=== PATIENT | male | born 1990 | race Caucasian/White ===

== ENCOUNTER 2017-04-02 11:07 | Emergency (ER) | payer BC ==
[~2017-04-02] VITALS: Ht 185.4 cm; Wt 85.0 kg
[2017-04-02 11:11] VITALS: BP 111/62; PULSE 78; RESP 16; TEMP 97.8; O2SAT 98
[2017-04-02] MEDS ORDERED: SERT-129 PO (11:28)
[2017-04-02] MEDS ORDERED: DIAZ5 PO (11:30)
--- NOTE | 2017-04-02 11:32 | PD ---
HPI Chief Complaint: Alcohol/Drug Intoxication Time Seen by Provider: 11:27 Travel History International Travel<30 days: No Contact w/Intl Traveler<30days: No Traveled to known affect area: No History of Present Illness HPI 27 yo M arrives 2/2 opioid withdrawal symptoms. He notes last methadone ingest was about 4 days ago. He's been taking methadone for 2 years at least. He denies alcohol abuse. He found some benefit with Klonopin however ran out about 2 weeks prior. He denies any history of IVDA. Symptoms include a generalized state of fatigue and generalized muscle soreness. Pt is [employer] student and will meet with their substance abuse psychiatrist on Wednesday, 3 days from today. No HI/SI. No hallucination. PFSH Social History Tobacco Use: No Substance Use: Yes Allergies-Medications (Allergen,Severity, Reaction): Coded Allergies: No Known Allergies (Unverified , 04/03/17) Reported Meds & Prescriptions Reported Meds & Active Scripts Active Ativan (Lorazepam) 2 Mg Tab 2 Mg PO EVERY 4 HOURS PRN Clonidine (Clonidine HCl) 0.1 Mg Tab 0.1 Mg PO BID 3 Days Days 5, 6 and 7 Clonidine (Clonidine HCl) 0.2 Mg Tab 0.2 Mg PO BID 1 Days Day 4 Clonidine (Clonidine HCl) 0.3 Mg Tab 0.3 Mg PO BID 1 Days Day 3 Clonidine (Clonidine HCl) 0.3 Mg Tab 0.3 Mg PO 3 TIMES A DAY 1 Days Day 2 Clonidine (Clonidine HCl) 0.3 Mg Tab 0.3 Mg PO QID 1 Days Day 1 Valium (Diazepam) 5 Mg Tab 5 Mg PO HS PRN Reported Sertraline (Sertraline HCl) 100 Mg Tab 100 Mg PO DAILY Review of Systems Except as stated in HPI: all other systems reviewed are Neg Physical Exam Narrative GENERAL: 27 yo M, WNWD, NAD SKIN: Warm and dry. HEAD: Atraumatic. Normocephalic. EYES: Pupils equal and round. No scleral icterus. No injection or drainage. ENT: No nasal bleeding or discharge. Mucous membranes pink and moist. NECK: Trachea midline. No JVD. CARDIOVASCULAR: Regular rate and rhythm. RESPIRATORY: No accessory muscle use. Clear to auscultation. Breath sounds equal bilaterally. GASTROINTESTINAL: Abdomen soft, non-tender, nondistended. Hepatic and splenic margins not palpable. MUSCULOSKELETAL: Extremities without clubbing, cyanosis, or edema. No obvious deformities. NEUROLOGICAL: Awake and alert. No obvious cranial nerve deficits. Motor grossly within normal limits. Five out of 5 muscle strength in the arms and legs. Normal speech. PSYCHIATRIC: Appropriate mood and affect; insight and judgment normal. Data Data Last Documented VS VS reviewed MDM Medical Decision Making Medical Screen Exam Complete: Yes Emergency Medical Condition: Yes Medical Record Reviewed: Yes Differential Diagnosis Opioid withdrawal, anxiety, suicidality Narrative Course Pt is not a harm to himself or others. He is motivated to stop opioid abuse completely. He has good outpatient follow up. Return precautions discussed. Diagnosis Primary Impression: Opioid withdrawal Referrals: Psychiatrist 3 days Additional Instructions: You have a choice when it comes to health care, and we are glad that you chose [facility]. Hopefully, we have met your expectations on today's visit. You are welcome to return to [facility] at any time, as we are committed to meeting the health care needs of our community. Med/Other Pt SpecificInfo: Prescription(s) given Scripts Diazepam (Valium)5 Mg Tab5 Mg PO HS PRN (SEVERE ANXIETY OR AGITATION) #20 TAB Ref 0 Prov:Nasir Jensen MD 04/02/17 Disposition: 01 DISCHARGE HOME Condition: Stable Nasir Jensen MD Apr 02, 2017 11:32
[2017-04-03] MEDS ORDERED: CLON0.1T PO (11:46)
[2017-04-03] MEDS ORDERED: LORA-475 PO (11:46)
[2017-04-03] MEDS ORDERED: CLON0.2T PO (11:46)
[2017-04-03] MEDS ORDERED: CLON0.3T PO ×3 (11:46)
== END 2017-04-02 11:54 | disposition home or self-care (01) ==
LOC: NEPD 11:07
DX: F11.23 Opioid dependence with withdrawal (principal); R53.83 Other fatigue; Z79.899 Other long term (current) drug therapy
CPT/HCPCS: 99283

== ENCOUNTER 2017-04-03 10:11 | Emergency (ER) | payer BC ==
[~2017-04-03] VITALS: Ht 185.4 cm; Wt 82.0 kg
[~2017-04-03 10:11] MED LIST: DIAZ5 PO; SERT-129 PO
[2017-04-03 10:13] VITALS: BP 122/65; PULSE 104; RESP 15; TEMP 98; O2SAT 98
[2017-04-03 10:24] VITALS: BP 132/71; PULSE 98; RESP 16; TEMP 99.1; O2SAT 99
--- NOTE | 2017-04-03 11:06 | PD ---
HPI . Methadone withdrawal Chief Complaint: Medical Clearance Time Seen by Provider: 11:02 Travel History International Travel<30 days: No Contact w/Intl Traveler<30days: No Traveled to known affect area: No History of Present Illness HPI Patient presents complaining with continued symptoms of methadone withdrawal. Patient was seen here yesterday for same. He was given a prescription for Valium, 5 mg. He states that he has taken that for the last 24 hours with no relief in his symptoms. He reports jitteriness, anxiety, insomnia. He states that he has been weaning off of methadone and last had a dose of methadone on March 29. He took 5 mg at that time. Patient reports that symptoms are severe. Symptoms have been unrelieved by Valium. No exacerbating factor. He does not report vomiting or diarrhea. [facility] Past Medical History Anxiety: Yes Diminished Hearing: No Past Surgical History Tonsillectomy: Yes Social History Alcohol Use: No Tobacco Use: No Substance Use: Yes (03/29/17 methadone last use 4 days ago ) Allergies-Medications (Allergen,Severity, Reaction): Coded Allergies: No Known Allergies (Unverified , 04/03/17) Reported Meds & Prescriptions Reported Meds & Active Scripts Active Valium (Diazepam) 5 Mg Tab 5 Mg PO HS PRN Reported Sertraline (Sertraline HCl) 100 Mg Tab 100 Mg PO DAILY Review of Systems Except as stated in HPI: all other systems reviewed are Neg General / Constitutional: No: Fever, Chills Psychiatric: Positive: Anxiety, Other (insomnia, jitteriness) Physical Exam Narrative GENERAL: Patient is awake and alert. Increased psychomotor activity. SKIN: Warm and dry. HEAD: Atraumatic. Normocephalic. EYES: Pupils equal and round. Extraocular movements are intact. ENT: No nasal bleeding or discharge. Mucous membranes pink and moist. NECK: Trachea midline. Neck is supple. CARDIOVASCULAR: Regular rate and rhythm. RESPIRATORY: No accessory muscle use. MUSCULOSKELETAL: No obvious deformities. No edema. NEUROLOGICAL: Awake and alert. No obvious cranial nerve deficits. Motor grossly within normal limits. Normal speech. PSYCHIATRIC: Appropriate mood and affect; insight and judgment normal. Data Data Last Documented VS Vital Signs Date Time Temp Pulse Resp B/P Pulse Ox O2 Delivery O2 Flow Rate FiO2 04/03/17 10:24 99.1 98 16 132/71 99 Room Air MDM Medical Decision Making Medical Screen Exam Complete: Yes Emergency Medical Condition: Yes Medical Record Reviewed: Yes (patient was seen here yesterday for the same thing. He was given a prescription for) Differential Diagnosis Differential diagnosis includes but is not limited to opiate withdrawal, anxiety , drug-seeking behavior Narrative Course This patient presents for treatment of methadone withdrawal. He has been weaning himself off of methadone for several weeks and took his last dose of methadone, 5 mg on March 29, which was 5 days ago. He states that he has been having ongoing symptoms of withdrawal the entire time that he has been weaning off of the methadone. Symptoms have been acutely worse since the methadone was completely stopped. Symptoms have not improved with Valium. I will treat him with clonidine and Ativan. He has follow-up arranged at the [facility]. Diagnosis Primary Impression: Opioid withdrawal Patient Instructions: General Instructions, Opioid Withdrawal (DC) Med/Other Pt SpecificInfo: Prescription(s) given Scripts Lorazepam (Ativan)2 Mg Tab2 Mg PO every 4 hours PRN (withdrawal) #20 TAB Ref 0 Prov:Rosy Velázquez MD 04/03/17 Clonidine 0.1 Mg Tab0.1 Mg PO BID 3 Days Ref 0 Days 5, 6 and 7 Prov:Rosy Velázquez MD 04/03/17 Clonidine 0.2 Mg Tab0.2 Mg PO BID 1 Day Ref 0 Day 4 Prov:Rosy Velázquez MD 04/03/17 Clonidine 0.3 Mg Tab0.3 Mg PO BID 1 Day Ref 0 Day 3 Prov:Rosy Velázquez MD 04/03/17 Clonidine 0.3 Mg Tab0.3 Mg PO 3 times a day 1 Day Ref 0 Day 2 Prov:Rosy Velázquez MD 04/03/17 Clonidine 0.3 Mg Tab0.3 Mg PO QID 1 Day Ref 0 Day 1 Prov:Rosy Velázquez MD 04/03/17 Disposition: 01 DISCHARGE HOME Condition: Stable Rosy Velázquez MD Apr 03, 2017 11:06
[2017-04-03] MEDS ORDERED: CLON0.1T PO (11:46)
[2017-04-03] MEDS ORDERED: LORA-475 PO (11:46)
[2017-04-03] MEDS ORDERED: CLON0.2T PO (11:46)
[2017-04-03] MEDS ORDERED: CLON0.3T PO ×3 (11:46)
== END 2017-04-03 13:45 | disposition home or self-care (01) ==
LOC: NEPC 10:11
DX: F11.23 Opioid dependence with withdrawal (principal); F41.9 Anxiety disorder, unspecified
CPT/HCPCS: 99284